=== PATIENT | male | born 2000 | race Caucasian/White ===

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

== ENCOUNTER 2020-04-03 10:38 | Outpatient (CLI) | payer OTHER | END 2020-04-03 10:50 | disposition HB | LOC: SONOGRAMA 10:38 | DX: N64.59 Other signs and symptoms in breast (principal); N62 Hypertrophy of breast ==

== ENCOUNTER 2020-04-03 12:39 | Outpatient (CLI) | payer OTHER | END 2020-04-03 12:48 | disposition home or self-care (01) | LOC: LAB 12:39 | PROVIDERS: ATTEND Specialist | DX: E11.42 Type 2 diabetes mellitus with diabetic polyneuropathy (principal); D30 Benign neoplasm of urinary organs; N39.0 Urinary tract infection, site not specified; K76.0 Fatty (change of) liver, not elsewhere classified; E03.8 Other specified hypothyroidism; E29.1 Testicular hypofunction; E22.1 Hyperprolactinemia; E55.9 Vitamin D deficiency, unspecified; E21.0 Primary hyperparathyroidism ==